=== PATIENT | male | born 1995 | race Two or more races ===

== ENCOUNTER 2022-03-16 16:26 | Emergency (ER) | payer OTHER ==
[~2022-03-16] VITALS: Ht 177.8 cm; Wt 92.0 kg
[2022-03-16 16:43] VITALS: BP 130/86
[2022-03-16] MEDS ORDERED: CEPH-509 PO (23:07)
== END 2022-03-16 23:11 | disposition home or self-care (01) ==
LOC: ER 16:26
DX: S50.862A Insect bite (nonvenomous) of left forearm, initial encounter (principal); S50.861A Insect bite (nonvenomous) of right forearm, initial encounter; W57.XXXA Bitten or stung by nonvenomous insect and other nonvenomous arthropods, initial encounter; Y93.89 Activity, other specified; Y92.89 Other specified places as the place of occurrence of the external cause; Y99.8 Other external cause status